=== PATIENT | male | born 2005 | race Two or more races ===

== ENCOUNTER 2023-09-08 21:03 | Emergency (ER) | payer OTHER ==
[2023-09-08 21:08] VITALS: BP 140/87; PULSE 70; RESP 19; TEMP 98.1; BMI 24.3
[2023-09-08] MEDS ORDERED: DIPHTH,PERTUSS(ACELL),TET 0.5 ML DISP.SYRIN IM ONE (22:42)
[2023-09-08] MEDS: DIPHTH,PERTUSS(ACELL),TET 0.5 ML DISP.SYRIN IM ONE (22:57)
[2023-09-08] MEDS ORDERED: ACETAMINOPHEN 500 MG TABLET (FP) ONE (23:01)
[2023-09-08] MEDS: ACETAMINOPHEN 500 MG TABLET (FP) PO ONE (23:03)
== END 2023-09-08 23:07 | disposition home or self-care (01) ==
LOC: JERFT 21:03
PROC: 0HQFXZZ Repair Right Hand Skin, External Approach (ICD-10-PCS; principal; 2023-09-08)
PROC: 3E0234Z Introduction of Serum, Toxoid and Vaccine into Muscle, Percutaneous Approach (ICD-10-PCS; 2023-09-08)
DX: S61.511A Laceration without foreign body of right wrist, initial encounter (principal); W27.5XXA Contact with paper-cutter, initial encounter; Z23 Encounter for immunization
CPT/HCPCS: 90715; 99283-25